=== PATIENT | male | born 1995 | race African-American/Black ===

== ENCOUNTER 2017-05-24 21:36 | Emergency (ER) | payer MEDICAID, OTHER ==
[~2017-05-24] VITALS: Ht 180.3 cm; Wt 107.0 kg
[2017-05-25] MEDS ORDERED: KETOROLAC 30MG/ML VIAL IM ONE (01:30)
[2017-05-25 01:47] LABS: HEMATOCRIT. 43.6 % (42.0-52.0); HEMOGLOBIN. 15.1 g/dL (14.0-18.0); MEAN CORPUSCULAR HEMOGLOBIN 28.8 pg (28.0-32.0); MEAN CORPUSCULAR VOLUME 83.2 fL (80.0-94.0); MEAN PLATELET VOLUME 8.7 fl (7.4-10.4); PLATELET 147 x1000/uL (130-400); RED BLOOD CELL COUNT 5.24 mill/uL (4.7-6.1); RED CELL DISTRIBUTION WIDTH 13.5 % (11.6-14.6)
[2017-05-25 01:49] VITALS: BP 119/59
[2017-05-25 01:54] LABS: CHLORIDE 107 mEq/L (98-107)
[2017-05-25 02:03] LABS: CARBON DIOXIDE 27 mEq/L (21-32)
[2017-05-25 04:19] LABS: PLATELET ESTIMATE NORMAL
== END 2017-05-25 02:36 | disposition home or self-care (01) ==
LOC: EDBD 21:36 → ER 22:26
DX: R05 Cough (principal); R19.7 Diarrhea, unspecified; R03.0 Elevated blood-pressure reading, without diagnosis of hypertension; F12.90 Cannabis use, unspecified, uncomplicated
CPT/HCPCS: 36415; 80053; 85025; 96372; 99284; J1885